=== PATIENT | female | born 1990 | race Caucasian/White ===

== ENCOUNTER 2016-10-07 00:06 | Emergency (ER) | payer OTHER ==
[~2016-10-07] VITALS: Ht 172.7 cm; Wt 65.9 kg
[2016-10-07 00:09] VITALS: BP 111/73; PULSE 125; RESP 18; O2SAT 98
[2016-10-07] MEDS ORDERED: 0.9% Sodium Chloride 1,000 ML IV ONE ×2 (00:40→02:20)
[2016-10-07 01:30] LABS: BASOPHILS % (AUTO) 0.1 % (0-3); EOSINOPHILS % (AUTO) 0.5 % (0-5); MONOCYTES % (AUTO) 7.9 % (4-12); Mean Corpuscular Hemoglobin 29.5 pg (27.0-35.0); Mean Corpuscular Volume 87.5 fL (81-100); Platelet Count 251 bil/L (150-400)
[2016-10-07] MEDS ORDERED: Ondansetron 2 mg/mL 2 mL Inj IVPUSH PRN (01:50)
--- NOTE | 2016-10-07 02:16 | ED.REPORT ---
HPI-General Illness Date of Service Oct 07, 2016 ED Provider: Flo Bullock DO Ms. Chanell Lynch is a pleasant 26-year-old female healthy with no past medical history is a 6 months and practicing primary breast-feeding who presents to [facility] emergency Department with a very tender 7/10 sharp painful spot on the lower medial portion of right breast. She noticed sudden onset at 4:30 PM and very rapidly became erythematous, hot, tender to expression and was associated with fever of 102 and worsening chills. She tried using a cold compress, ice, continual expression, continued feeding and pumping her breast milk which was only mildly effective at relieving painful symptoms.. Throughout the evening the pain increased her fever became more intense, and was associated with extreme weakness and eventually a 9 out of 10 sharp pulsatile bilateral headache. Her breast milk was normal in color and odor, was not bloody or filled with pus. She denies all other symptoms such as nausea, vomiting, syncope, change of vision, loss of appetite, chest pain, difficulty breathing, cough, abdominal pain, pressure, diarrhea, dysuria. Nursing Notes Stated Complaint: FEVER, RT BREAST PAIN Chief Complaint: General Complaint Nursing Notes Reviewed: Yes Allergies: Coded Allergies: No Known Allergies (Verified , 10/07/16) Scheduled Dicloxacillin (Dicloxacillin) 250 Mg Capsule 500 MG PO QID General Time Seen by MD: 00:09 Chief Complaint Other (mastitis) Hx Obtained From: Patient Sudden in Onset?: Yes Review of Systems A comprehensive review of systems was conducted with the patient and found to be negative except as above in the History of Present Illness. Physical Exam General: Young lady lying in bed in mild stress, well-developed, well-nourished , appropriately interactive HEENT: Normocephalic, atraumatic. External ears without defect. Pupils equal, round, and reactive to light and accommodation. Anicteric sclerae, moist conjunctivae, and no lid lag. Oropharynx free of erythema and cobble stoning with moist mucosa. Neck: Supple with full range of motion. No jugular venous distension. No bruits. No lymphadenopathy or thyromegaly. Cardiovascular: Regular rate and rhythm with no murmurs, rubs, or gallops appreciated Pulmonary: Clear to auscultation bilaterally with no crackles, wheezes, or rhonchi. Normal respiratory effort with no use of accessory muscles. Abdomen: Bowel tones present. Soft, nontender, nondistended. No hepatosplenomegaly or masses appreciated. Extremities: No clubbing, cyanosis, edema, or lymphadenopathy appreciated. Breast: Right breast erythematous and warm and tender to the touch on the medial lower aspect. Normal milk expression during exam. Skin: Normal temperature, turgor, and texture; no rash, ulcers, or subcutaneous nodules appreciated. Neurological: Cranial nerves grossly intact. Normal muscle strength, tone, and bulk. Reflexes, coordination, and sensory function within normal limits. No known gait impairment. Psychiatric: Normal mood and affect. Alert and oriented to person, place, and time. Vital Signs Vital Signs Date Time Temp Pulse Resp B/P Pulse Ox O2 Delivery O2 Flow Rate FiO2 10/07/16 03:23 37.7 100 16 96/47 95 Room Air 10/07/16 02:41 37.7 100 16 96/47 95 10/07/16 00:09 38.8 125 18 111/73 98 Room Air Interpretation & Diagnostics Lab Results Interpretation Result Diagram: 10/07/16 0125 10/07/16 0125 Test 10/07/16 01:25 White Blood Count 10.8th/mm3 (3.8-10.1) Red Blood Count 4.24mil/mm3 (3.90-5.20) Hemoglobin 12.5g/dL (12.0-15.6) Hematocrit 37.1% (35.0-46.0) Mean Corpuscular Volume 87.5fL (81-100) Mean Corpuscular Hemoglobin 29.5pg (27.0-35.0) Mean Corpuscular Hemoglobin Concent 33.7% (32.0-37.0) Red Cell Distribution Width 12.2% (12.3-15.4) Platelet Count 251bil/L (150-400) Neutrophils (%) (Auto) 86.0% (40-74) Lymphocytes (%) (Auto) 5.4% (14-46) Monocytes (%) (Auto) 7.9% (4-12) Eosinophils (%) (Auto) 0.5% (0-5) Basophils (%) (Auto) 0.1% (0-3) Sodium Level 139mEq/L (134-144) Potassium Level 3.9mEq/L (3.5-5.2) Chloride Level 99mEq/L (97-108) Carbon Dioxide Level 25mmol/L (18-29) Blood Urea Nitrogen 9mg/dL (6-20) Creatinine 0.62mg/dL (0.57-1.00) Estimat Glomerular Filtration Rate 165mL/min (>59) Glucose Level 114mg/dL (60-99) Calcium Level 9.3mg/dL (8.5-10.1) Total Bilirubin 0.7mg/dL (0.0-1.2) Aspartate Amino Transf (AST/SGOT) 18U/L (0-50) Alanine Aminotransferase (ALT/SGPT) 11U/L (0-32) Alkaline Phosphatase 106U/L (25-150) Total Protein 7.0g/dL (6.4-8.4) Albumin 4.2g/dL (3.4-5.0) Hold Mcintosh Top Tube Received (Received) Re-Eval/Medical Decision Med Decision/Clinical Course Mrs. Chanell Lopze is a young very healthy lady currently 6 months and practicing primary breast-feeding who presents tachycardic at 125 , febrile at 38.8, headache, weak and very painful tender right breast, consistent with signs of mastitis and dehydration. The emergency department with a CBC to look for infectious markers which were negative as well as a CMP check for electrolyte abnormalities which was also negative. We cultured her breast milk the right side to help rule out MRSA and [place]. She received 30 mg Toradol IV and started dicloxacillin 500 mg orally. She also received 1 L normal saline with improvement of symptoms. She will be sent home with home Toradol and dose of dicloxacillin with detailed instructions to return to ED if symptoms worsen. This is most likely a clogged lactiferous duct with infection consistent with mastitis. If symptoms do not improve patient will need an ultrasound of the right breast to rule out breast abscess. Culture of the breast milk will be monitored and adjustments will be made if necessary to the outpatient antibiotic regimen. Discharge & Departure Primary Impression: Mastitis Additional Impression: Sepsis Sepsis type: sepsis due to unspecified organism Qualified Code: A41.9 - Sepsis, unspecified organism Disposition: Home Discharge Condition All VS Reviewed: Yes Condition: Stable Patient Instructions: Mastitis (ED) Additional Instructions: During you visit to [facility] Emergency Department we obtained blood work for infectious markers, hemoglobin levels, and electrolytes as well as cultured your breast milk. All your lab values were within normal limits and the culture her breast milk is currently pending. We will monitor and make changes to outpatient antibiotic regimen if necessary in the next couple days when results are received. Here in the emergency department he received 2 L normal saline, 30 mg IV Toradol , 500 mg oral dicloxacillin. We will send you home with - 10 day course of Antibiotics (500 mg dicloxacillin four times a day.) - Nausea medications - dissolvable Zofran ODT tablets Do not hesitate to call emergency services or your primary care physician if you experience any of the following. -High unrelenting fevers. -Uncontrolled vomiting. -Severe hypertension. -Syncope or loss of consciousness. -Chest pain or severe shortness of breath. -We will review signs and symptoms of breast tenderness do not resolve or get worse in the next 2-3 days. It is important to continue to breast-feed, use cold compresses and ice packs as well as taking ibuprofen as needed for fever and pain. It is also important to continue to drink plenty of fluids. Follow up with your primary care physician and [employer] in 1 weeks time following your emergency department visit general well-being and adjustments in medication if necessary. Referrals: BEATRIZ JAIMES (PCP) Attending Statement I saw and evaluated this patient with Dr. Mcfarlane and agree with the assessment and plan as documented above. Patient initially presented with sepsis secondary to right breast mastitis, onset today, which improved after fluids, Toradol, and antibiotics. She is feeling much better time of discharge and has a good plan for follow-up in place. copies to: BEATRIZ JAIMES COREY P DO Oct 07, 2016 02:16 Flo Bullock DO Oct 08, 2016 08:22
[2016-10-07] MEDS ORDERED: DICL250C PO (02:20)
[2016-10-07] MEDS ORDERED: _Ondansetron ODT 4 mg Tablet PO PRN (02:20)
[2016-10-07 02:41] VITALS: BP 96/47; PULSE 100; RESP 16; O2SAT 95
[2016-10-07 03:23] VITALS: BP 96/47; PULSE 100; RESP 16; O2SAT 95
== END 2016-10-07 03:28 | disposition home or self-care (01) ==
LOC: SED 00:06
DX: N61.0 Mastitis without abscess (principal); A41.9 Sepsis, unspecified organism; E86.0 Dehydration; Z39.1 Encounter for care and examination of lactating mother
CPT/HCPCS: 36415; 80053; 85025; 87070; 87075; 87077; 87186; 87205; 96361; 96374; 96375; 99285; J2405; J7030